=== PATIENT | female | born 1970 | race Asian ===

== ENCOUNTER 2018-04-11 09:48 | Emergency (ER) | payer OTHER, SELFPAY ==
[2018-04-11 10:09] VITALS: BP 173/87; PULSE 74; RESP 13; TEMP 36.6; O2SAT 98
[2018-04-11 10:32] LABS: Alanine Aminotransferase 30 IU/L (9-52)
[2018-04-11 11:27] LABS: Hepatitis B Surface Antigen NEGATIVE s/c (NEGATIVE)
[2018-04-11 11:45] LABS: HIV 1 and 2 Antibody NEGATIVE (NEGATIVE); Hep C Virus Ab w/Reflex Quant NEGATIVE s/c (NEGATIVE)
--- NOTE | 2018-04-11 20:30 | ED_ITS ---
HPI - Skin/Abscess/Foreign Bdy General Chief complaint: Skin/Abscess/Foreign Body Stated complaint: NEEDLE STICK Time Seen by Provider: 04/11/18 10:00 Source: patient Mode of arrival: ambulatory Limitations: no limitations History of Present Illness HPI narrative: 47-year-old otherwise healthy female presents to the emergency department for an accidental needle stick during a surgical procedure. 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 She has a small poke the lateral aspect of right index finger that bled minimally but was cleaned extensively on scene. All of her immunizations are up-to-date. To reiterate, this is a solid needle with minimal blood through 2 sets of gloves. Related Data Allergies Allergy/AdvReac Type Severity Reaction Status Date / Time No Known Drug Allergies Allergy Verified 04/11/18 10:15 Review of Systems Review of Systems All systems reviewed & are unremarkable except as noted in HPI and below Constitutional Denies chills, Denies fever(s), Denies lethargy and Denies weakness Eyes Denies change in vision, Denies eye discharge, Denies irritation and Denies loss of vision ENT Ears, Nose, Mouth, and Throat: Denies change in voice, Denies neck pain and Denies sore throat Cardiovascular Denies chest pain, Denies irregular heart rhythm, Denies lightheadedness, Denies palpitations, Denies dyspnea, Denies dyspnea on exertion and Denies orthopnea Respiratory Denies cough, Denies dyspnea, Denies dyspnea on exertion and Denies wheezing Gastrointestinal Gastrointestinal: Denies abdominal pain, Denies change in bowel habits, Denies diarrhea, Denies nausea and Denies vomiting Genitourinary Denies hematuria, Denies flank pain, Denies urinary incontinence and Denies urinary urgency Musculoskeletal Denies neck pain Integumentary/Breasts Denies pruritus, Denies erythema, Denies rash and Denies wounds Neurologic Denies confusion, Denies loss of vision and Denies weakness Psychiatric Denies anxiety, Denies confusion, Denies depression, Denies homicidal ideation and Denies suicidal ideation Endocrine Denies palpitations Hematologic/Lymphatic Denies easy bruising Allergic/Immunologic Denies wheezing Exam Narrative Exam Narrative: GEN: AOx3 and in mild distress EYES: Pupils are equal, round, and reactive to light and accommodation. Extraoccular muscles are intact bilaterally. There is no subconjunctival hemorrhage or exudate. CHEST: Lungs are clear to auscultation bilaterally and free of wheezes, rales, or rhonchi. Heart rate is regular rhythm, there are no murmurs, clicks, rubs, or gallops. There is no chest wall tenderness. ABD: Abdomen is soft and nontender. There is no guarding or rebound. Bowel sounds are normal in all 4 quadrants. There is no mass or organomegaly. EXT: Small puncture right index finger, minimal bleeding Full painless ROM of all extremities with no loss of sensation or strength. SKIN: Warm, pink, and dry. No erythema or rash Initial Vital Signs Initial Vital Signs: Vital Signs Temperature 97.8 F 04/11/18 10:09 Pulse Rate 74 04/11/18 10:09 Respiratory Rate 13 04/11/18 10:09 Blood Pressure 173/87 H 04/11/18 10:09 Pulse Oximetry 98 04/11/18 10:09 MDM - Skin/Abscess/Foreign Bdy Lab Data Lab Results 04/11/18 04/11/18 Range/Units 10:12 10:12 ALT 30 (9-52) IU/L Hep Bs Antigen Negative (NEGATIVE) s/c Hepatitis C Antibody Negative (NEGATIVE) s/c HIV 1&2 Antibody Negative (NEGATIVE) MDM Narrative Medical decision making narrative: This is a very low risk stick coming from a solid needle through gloves Discharge Plan Departure Patient Disposition: Home, Self-Care Clinical Impression: Accidental needlestick injury with exposure to body fluid Discharge Date/Time: 04/11/18 10:43 Interventions: ED Discharge Assessment Last Done: 04/11/18 10:42 Activity Restrictions/Additional Instructions: *You have been diagnosed with [ accidental needle stick injury] *What to do: *Follow up with your primary care provider in 2-3 days, call for an appointment. Let them know you were seen in the Emergency Department and that we ask that you be seen in follow up *Return to ER if you should have any new, worsening or concerning symptoms , such as [increasing pain, swelling, redness or other bothersome symptoms as result of this needle stick ]
[2018-04-13 07:42] LABS: Hepatitis B Surf Ab Qualitativ Reactive (Nonreactive)
== END 2018-04-11 10:43 | disposition home or self-care (01) ==
LOC: ED 10:38
PROVIDERS: Emergency Provider Emergency Medicine
DX: S61.230A Puncture wound without foreign body of right index finger without damage to nail, initial encounter (principal); W46.0XXA Contact with hypodermic needle, initial encounter
CPT/HCPCS: 36415; 84460; 86703; 86706; 86803; 87340; 99282; 99283